=== PATIENT | male | born 1960 | race Caucasian/White ===

== ENCOUNTER 2020-09-29 15:25 | Inpatient (IN) | payer BC ==
[~2020-09-29] VITALS: Ht 188 cm; Wt 117.9 kg
[2020-09-29 17:59] LABS: HEMOGLOBIN 15.5 gm/dl (14.0-17.5); RED BLOOD COUNT 5.24 M/UL (4.20-5.50); WHITE BLOOD COUNT 3.2 K/UL (4.5-11.0)
[2020-09-29 18:16] LABS: BUN/CREATININE RATIO 18 (0-10)
[2020-09-30 03:42] LABS: HEMOGLOBIN 15.4 gm/dl (14.0-17.5); RED BLOOD COUNT 5.3 M/UL (4.20-5.50)
[2020-09-30 03:46] LABS: WHITE BLOOD COUNT 2.2 K/UL (4.5-11.0)
[2020-09-30 03:56] LABS: BUN/CREATININE RATIO 20 (0-10)
--- NOTE | 2020-09-30 07:31 | NUR ---
DR. CHOWDHURY WAS CALLED ABOUT THE PATIENT'S HEART RATE STAYING IN THE 150S WITH CARDIZEM GOING AT 15 THE DOCTOR WAS ALSO NOTIFIED THAT THE PATIENT IS ASYMPTOMATIC. DOCTOR ORDER 12MG IVP ADENOSINE ONCE AND TO PUT IN A CARDIOLOGY CONSULT. THE CODE CART WAS BROUGHT INTO THE PATIENTS ROOM AND THE PATIENT WAS HOOKED UP TO THE CODE CART MONITOR. 12MG IVP ADENOSINE WAS PUSHED AND WITNESSED BY 5 NURSES. ADENOSINE WAS QUICKLY FLUSHED BY 50ML OF NORMAL SALINE. PATIENT'S HEART RATE IS NOW 92BPM. THE PATIENT CURRENTLY IS ASYMPTOMATIC.
[2020-10-03 02:25] LABS: HEMOGLOBIN 14.7 gm/dl (14.0-17.5); RED BLOOD COUNT 5.02 M/UL (4.20-5.50)
[2020-10-03 03:16] LABS: BUN/CREATININE RATIO 33 (0-10)
[2020-10-05 02:37] LABS: HEMOGLOBIN 14.5 gm/dl (14.0-17.5); RED BLOOD COUNT 4.95 M/UL (4.20-5.50)
[2020-10-05 02:38] LABS: WHITE BLOOD COUNT 5.7 K/UL (4.5-11.0)
[2020-10-05 03:43] LABS: BUN/CREATININE RATIO 29 (0-10)
--- NOTE | 2020-10-08 14:24 | NUR ---
PT O2 SAT ON ROOM AIR = 86% - OXYGEN APPLIED AT 2L VIA N/C- O2 SAT INCREASES TO 93%
== END 2020-10-08 16:55 | disposition home or self-care (01) | DRG 177 ==
LOC: ER1 15:25 → CDU 21:16 → PROG CARE 21:16 → MED SURG 4 22:28 → PROG CARE 09-30 05:31
PROVIDERS: Internal Medicine; Preventive Medicine Occupational Medicine; ADMIT Internal Medicine
PROC: 8E0ZXY6 Isolation (ICD-10-PCS; principal; 2020-09-29)
PROC: XW033E5 Introduction of Remdesivir Anti-infective into Peripheral Vein, Percutaneous Approach, New Technology Group 5 (ICD-10-PCS; 2020-09-29)
PROC: 3E0333Z Introduction of Anti-inflammatory into Peripheral Vein, Percutaneous Approach (ICD-10-PCS; 2020-09-29)
PROC: XW13325 Transfusion of Convalescent Plasma (Nonautologous) into Peripheral Vein, Percutaneous Approach, New Technology Group 5 (ICD-10-PCS; 2020-10-01)
PROC: B24BZZZ Ultrasonography of Heart with Aorta (ICD-10-PCS; 2020-10-08)
DX: U07.1 COVID-19 (principal); J12.82 Pneumonia due to coronavirus disease 2019; J80 Acute respiratory distress syndrome; I47.1 Supraventricular tachycardia; I95.9 Hypotension, unspecified; R00.1 Bradycardia, unspecified; D69.6 Thrombocytopenia, unspecified; D72.819 Decreased white blood cell count, unspecified
CPT/HCPCS: ECHO; 36415; 36600; 71045; 80048; 80053; 82803; 85025; 86140; 86900; 86901; 86927; 93005; 93306; 94640; 94664; 94760; 96374; 96375; 99284; J0153; J0456; J1100; J1205; J1335; J1650; J3480; J7030; U0002

== ENCOUNTER → 2020-11-09 | Outpatient (CLI) | payer BC | LOC: EXRD 15:14 | DX: Z09 Encounter for follow-up examination after completed treatment for conditions other than malignant neoplasm (principal); Z86.16 Personal history of COVID-19 | CPT/HCPCS: 71046 ==

== ENCOUNTER → 2021-02-16 | Outpatient (CLI) | payer BC | LOC: EXRD 11:11 | DX: Z20.822 Contact with and (suspected) exposure to COVID-19 (principal); Z86.16 Personal history of COVID-19 | CPT/HCPCS: 71046 ==

== ENCOUNTER → 2021-04-27 | Outpatient (CLI) | payer BC | LOC: KOH-I 11:45 | DX: M54.50 Low back pain, unspecified (principal); M25.552 Pain in left hip | CPT/HCPCS: 72100; 73502 ==

== ENCOUNTER 2021-06-05 22:34 | Emergency (ER) | payer BC ==
[2021-06-05 23:28] LABS: HEMOGLOBIN 15.4 gm/dl (14.0-17.5); RED BLOOD COUNT 5.12 M/UL (4.20-5.50); WHITE BLOOD COUNT 8.4 K/UL (4.5-11.0)
[2021-06-05 23:48] LABS: BUN/CREATININE RATIO 15 (0-10)
[2021-06-06] MEDS ORDERED: CARDIZEM CD180 MG PO (03:29)
== END 2021-06-06 03:45 | disposition home or self-care (01) ==
LOC: ER1 22:34
PROVIDERS: Family Medicine
DX: I47.1 Supraventricular tachycardia (principal); R07.89 Other chest pain
CPT/HCPCS: 71045; 80053; 82550; 82553; 83874; 84439; 84443; 84484; 85025; 93005; 96374; 99284; J0153; J2704